=== PATIENT | male | born 1975 | race Caucasian/White ===

== ENCOUNTER 2021-11-11 09:52 | Emergency (ER) | payer SELFPAY ==
[2021-11-11] MEDS ORDERED: LORazepam 1 MG Tab PO ONE (10:18)
[2021-11-11 11:09] LABS: POTASSIUM,K 4.1 mmol/L (3.5-5.1)
== END 2021-11-11 11:39 | disposition left against medical advice (07) ==
LOC: MW.ED 09:52
DX: F41.0 Panic disorder [episodic paroxysmal anxiety] (principal); F41.9 Anxiety disorder, unspecified; I10 Essential (primary) hypertension; Z88.6 Allergy status to analgesic agent
CPT/HCPCS: 36415; 71045; 80053; 84484; 85025; 85379; 85610; 93005; 99284; A9270